=== PATIENT | female | born 1995 | race Asian ===

== ENCOUNTER 2016-11-06 21:18 | Emergency (ER) | payer OTHER ==
[~2016-11-06] VITALS: Ht 160 cm; Wt 62.1 kg
[2016-11-06 21:22] VITALS: BP 128/79
[2016-11-06] MEDS ORDERED: SILVER SULF. CRM 1% , 25GM TP ONE (22:00)
== END 2016-11-06 22:34 | disposition home or self-care (01) ==
LOC: ED 22:28
DX: T23.212A Burn of second degree of left thumb (nail), initial encounter (principal); T31.0 Burns involving less than 10% of body surface; X12.XXXA Contact with other hot fluids, initial encounter; Y93.89 Activity, other specified; Y92.89 Other specified places as the place of occurrence of the external cause; Y99.8 Other external cause status
CPT/HCPCS: 16020